=== PATIENT | female | born 1950 | race Caucasian/White ===

== ENCOUNTER → 2023-08-25 | Outpatient (CLI) | payer MEDICARE ==
--- NOTE | 2023-08-25 16:06 | BD ---
EXAMINATION TYPE: Axial Bone Density DATE OF EXAM: 08/25/2023 CLINICAL HISTORY: 72 years old Female. ICD-10 CODE: M85.88 OTH DISORDER OF BONE DENSI Height: 60 Weight: 106 FRAX RISK QUESTIONS: Family History (Parent hip fracture): no History of Fracture in Adulthood: yes Secondary Osteoporosis: no Rheumatoid Arthritis: no RISK FACTORS HISTORY OF: Surgery to Hip(right) When: 2023 MEDICATIONS: Thyroid Medications: no Osteoporosis Medications: no EXAM MEASUREMENTS: Bone mineral densitometry was performed using the [employer] System. Bone mineral density as measured about the Lumbar spine is: ----- L1-L4(G/cm2): 1.077 T Score Values are as follows: ----- L1: -1.3 ----- L2: 0.4 ----- L3: -0.7 ----- L4: -1.8 ----- L1-L4: -0.9 Z Score Values are as follows: ----- L1: 1.0 ----- L2: 2.7 ----- L3: 1.6 ----- L4: 0.4 ----- L1-L4: 1.4 Bone mineral density baseline Bone mineral density about the L hip (g/cm2): 0.719 T Score values are as follows: -----L Neck: -2.7 -----L Total: -2.3 Z Score values are as follows: -----L Neck: -0.6 -----L Total: -0.3 Bone mineral density baseline FRAX%s: The graph provided illustrates a 23.2% chance for a major osteoporotic fx and a 7.3% chance f or the hips probability for fx in 10 years time. IMPRESSION: Osteoporosis (T Score less than -2.5). There is increased fracture risk and therapy is usually indicated based on age. Re-Screen 1-2 years. NOTE: T-SCORE=SD OF THE YOUNG ADULT MEAN.
== END | disposition home or self-care (01) ==
LOC: RADBDWWP 07:15
PROVIDERS: ATTEND Family Medicine
DX: Z12.31 Encounter for screening mammogram for malignant neoplasm of breast (principal); M85.88 Other specified disorders of bone density and structure, other site
CPT/HCPCS: 77080

== ENCOUNTER → 2023-10-27 | Outpatient (CLI) | payer MEDICARE ==
[2023-10-27 20:07] LABS: Blood Urea Nitrogen 24.4 mg/dL (9.0-27.0); Carbon Dioxide 19.7 mmol/L (21.6-31.8); Chloride 101 mmol/L (96-109); Potassium 4.8 mmol/L (3.5-5.5); Sodium 134 mmol/L (135-145)
[2023-10-27 23:21] LABS: NT-Pro-B-Type Natriuretic Pept 2383 pg/mL (0-125)
== END | disposition home or self-care (01) ==
LOC: LABWHC1 10:55
PROVIDERS: ATTEND Internal Medicine Interventional Cardiology
DX: I25.5 Ischemic cardiomyopathy (principal)
CPT/HCPCS: 36415; 80051; 82565; 83880; 84520

== ENCOUNTER → 2023-12-08 | Outpatient (CLI) | payer MEDICARE ==
[2023-12-08 15:35] LABS: BUN/Creat Ratio 32.92 Ratio (12.00-20.00); Blood Urea Nitrogen 39.5 mg/dL (9.0-27.0); Calcium 9.4 mg/dL (8.7-10.3); Carbon Dioxide 25.4 mmol/L (21.6-31.8); Chloride 102 mmol/L (96-109); Glucose 104 mg/dL (70-110); Potassium 4.9 mmol/L (3.5-5.5); Sodium 139 mmol/L (135-145)
[2023-12-08 15:52] LABS: Basophils # (A) 0.04 X 10*3/uL (0.00-0.10); Basophils % (A) 0.5 %; Eosinophils # (A) 0.12 X 10*3/uL (0.04-0.35); Eosinophils % (A) 1.6 %; HGB 13.9 g/dL (12.0-15.0); Lymphocytes # (A) 1.33 X 10*3/uL (0.90-5.00); Lymphocytes % (A) 18.1 %; MCH 30.2 pg (27.0-32.0); MCHC 32.3 g/dL (32.0-37.0); MCV 93.5 FL (80.0-97.0); Mean Platelet Volume 10.3 FL (9.5-12.2); Monocytes # (A) 0.63 X 10*3/uL (0.20-1.00); Monocytes % (A) 8.6 %; NRBC Per 100 WBC 0 X 10*3/uL (0.00-0.01); Neutrophils % (A) 70.7 %; Platelet Count 256 X 10*3/uL (140-440); RDW 14.9 % (11.5-14.5); WBC 7.36 X 10*3/uL (4.50-10.00)
[2023-12-08 17:03] LABS: INR 1.01 sec (0.93-1.11); Prothrombin Time 10.9 sec (9.9-11.9)
== END | disposition home or self-care (01) ==
LOC: LABPAT 07:51
PROVIDERS: ATTEND Orthopaedic Surgery
CPT/HCPCS: 36415; 80048; 85025; 85610; 87070

== ENCOUNTER → 2023-12-21 | Outpatient (CLI) | payer MEDICARE ==
--- NOTE | 2023-12-21 11:43 | US ---
EXAMINATION TYPE: US kidneys/renal and bladder DATE OF EXAM: 12/21/2023 COMPARISON: NONE CLINICAL INDICATION: Female, 73 years old with history of E87.0 HYPEROSMOLALITY AND HYPERNATREMIA; Ab normal labs TECHNIQUE: Grayscale imaging of the bilateral kidneys and urinary bladder: FINDINGS: EXAM MEASUREMENTS: Right Kidney: 9.7 x 3.8 x 5.0 cm Left Kidney: 9.6 x 4.4 x 4.0 cm Right Kidney: No evidence of hydro, small cystic lesion lower pole= 0.6 x 0.6 x 0.7 cm Left Kidney: Simple Cyst medial= 2.9 x 2.2 x 2.8 cm, mildly dilated pelvis= 0.9 cm Bladder: wnl Bilateral Jets seen: No Incidental finding gallstones IMPRESSION: 1. Small bilateral cortical renal cysts. 2. Cholelithiasis. [facility], , 12/21/2023 11:40 AM
== END | disposition home or self-care (01) ==
LOC: RADUSWWP 07:22
PROVIDERS: ATTEND Family Medicine
DX: N28.1 Cyst of kidney, acquired (principal); K80.20 Calculus of gallbladder without cholecystitis without obstruction; E87.0 Hyperosmolality and hypernatremia
CPT/HCPCS: 76770

== ENCOUNTER 2024-01-04 08:08 | Day surgery (SDC) | payer MEDICARE ==
[2023-12-30 15:10] VITALS: BMI 21.3
--- NOTE | 2024-01-03 20:47 | HP ---
HISTORY AND PHYSICAL DATE OF SURGERY: 01/04/2024. HISTORY OF PRESENT ILLNESS: Khushboo Jay is a 73-year-old patient seen with symptomatic left knee osteoarthritis. After having treatment options discussed, she elected to proceed with left total knee arthroplasty. Consent regarding the procedure was obtained. Medical clearance was provided by Dr. Delarosa's office. Cardiac clearance provided by Dr. Tracy's office. PAST MEDICAL HISTORY: Hypertension, hyperlipidemia, coronary artery disease. PAST SURGICAL HISTORY: Cardiac catheterization with stent, right total hip arthroplasty. DAILY MEDICATIONS: 1. Brilinta. 2. Atorvastatin. 3. Enalapril. 4. Metoprolol. 5. Potassium. ALLERGIES: None. SOCIAL HISTORY: She denies tobacco use. PHYSICAL EVALUATION OF THE LEFT KNEE: Range of motion is -2 to 120 degrees. Crepitus, medial patellofemoral compartments with range of motion. Pain with patellofemoral compression. Ligaments stable. Hip rotation without pain. Distal neurovascular exam is intact. IMAGING STUDIES: Left knee radiographs reveal severe osteoarthritic changes. IMPRESSION: 1. Left knee osteoarthritis. 2. Hypertension. 3. Hyperlipidemia. 4. Cardiovascular disease. PLAN: Left total knee arthroplasty. MMODL / IJN: [id number] /
[~2024-01-04 08:08] MED LIST: LIDOCAINE 1% (10MG/ML) FOR IV START INTRADERMA PRN; TRANEXAMIC 1,000 MG/100ML-NACL 1,000 MG in SALINE 1 100ML.BAG IVPB PRN; fentaNYL (PF) 50 MCG/ML 2 ML AMP IV PRN
[2024-01-04] MEDS: IV FLUID CONTINUATION 1,000 ML IV ONE (09:01)
[2024-01-04] MEDS: LACTATED RINGERS 1,000 ML IV SCH ×2 (09:11→14:51)
[2024-01-04] MEDS: MIDAZOLAM 2 MG/2 ML VIAL IV ONE (09:18)
[2024-01-04] MEDS: MELOXICAM 7.5 MG TAB PO PRN (09:34)
[2024-01-04] MEDS: ONDANSETRON 4 MG/2 ML VIAL IVP ONE (09:35)
[2024-01-04] MEDS: ACETAMINOPHEN TAB 500 MG TAB PO PRN (09:35)
[2024-01-04] MEDS: DEXAMETHASONE SOD PHOSPHATE 4 MG/ML 1 ML VIAL IV ONE (09:35)
[2024-01-04] MEDS: ceFAZolin 1,000 MG in SODIUM CHLORIDE 0.9% 1,000 ML IRRIGATION ONE (10:20)
[2024-01-04] MEDS ORDERED: ONDANSETRON 4 MG/2 ML VIAL IVP PRN (11:29)
[2024-01-04] MEDS ORDERED: HYDROmorphone 0.5 MG/0.5 ML SYRINGE IVP PRN ×2 (11:29)
[2024-01-04] MEDS ORDERED: HYDROcodone/APAP 5-325MG 1 EACH TAB PO PRN (11:29)
[2024-01-04] MEDS ORDERED: NALOXONE 0.4 MG/ML 1 ML VIAL IV PRN (11:29)
--- NOTE | 2024-01-04 11:29 | P.OP ---
Date of Procedure: 01/04/24 Preoperative Diagnosis: Left knee osteoarthritis Postoperative Diagnosis: Left knee osteoarthritis Procedure(s) Performed: Left total knee arthroplasty Implants: 1. DePuy attune size 4 narrow left cruciate retaining cemented femur 2. DePuy attune size 3 fixed-bearing cemented tibial baseplate 3. DePuy attune size 4 fixed-bearing cruciate retaining 7 mm polyethylene tibial insert 4. DePuy attune 32 mm all polyethylene cemented patella Anesthesia: regional (Adductor canal catheter, iPAQ block), spinal Surgeon: Hebert Barger Instructor Pilot #1: Deniz Felix Estimated Blood Loss (ml): 45 Pathology: none sent Condition: stable Disposition: PACU Indications for Procedure: 73-year-old patient seen with symptomatic left knee osteoarthritis. After having treatment options discussed, she elected to proceed with left total knee arthroplasty. Operative Findings: See description of procedure Description of Procedure: Patient was taken to the operative suite after having an adductor canal catheter placed by the department of anesthesia. Patient underwent a spinal anesthetic by the department of anesthesia. Patient was given preoperative IV intake antibiotics and TXA. A well-padded tourniquet was placed about the left lower extremity. The lower extremity was then prepped and draped in the normal sterile orthopedic fashion. The extremity was elevated, a tourniquet was insufflated to 300. A standard anterior incision was made sharply through skin. Dissection was taken down through the subcutaneous soft tissues down to the extensor mechanism. A medial arthrotomy was performed, patella was everted and knee was flexed. There was advanced osteoarthritis noted. I introduced my distal intramedullary femoral drill. I then introduced the distal femoral cutting jig. Parveen GONZALES secured the cutting jig with 2 pins. I held retractors in position while Parveen GONZALES performed the distal femoral resection through the guide area we now removed her distal femoral cutting guide. We now placed our 4-in-1 femoral cutting block and positioned and it was secured with 2 pins by Parveen GONZALES while I held the block in position. The distal femoral finishing was now completed. A proximal tibial cutting guide was positioned. I held the guide in the appropriate position with both hands well Parveen GONZALES inserted stabilizing pins into the guide. Proximal tibial cut was made. We now placed a trial femoral component into position, along with an appropriate size tibial tray and insert. We now took the knee through range of motion and had full extension good flexion and good overall soft tissue balance noted. The patella was everted and stabilized with 2 towel clips held by Parveen GONZALES while I performed a flush with patellar quad tendon utilizing a fresh sawblade. We templated the patella, appropriate drill holes were made. An appropriate trial patella was positioned, knee was taken through full range of motion with the patella tracking very nicely. The trial patella was removed. Drill holes were made through the femoral component. All trial components were removed after marking off the appropriate rotation of the tibia. Retractors were now positioned along the proximal tibia. An appropriate keel punch was made with the appropriate size tibial guide by myself on Parveen GONZALES assisted by holding retractors. At this point appropriate size implants were chosen and opened. The joint was irrigated copiously with pulse lavage mechanical irrigation. The wound was irrigated with pulse lavage mechanical irrigation. We mixed antibiotic methylmethacrylate. We placed the knee into flexion. We placed multiple retractors assisted by Parveen GONZALES to expose the proximal tibia. Once the methyl methacrylate was ready, the tibial component was cemented into place removing any excess methylmethacrylate form by both myself and Parveen GONZALES. The femoral component was cemented into place removing the removing any excess methylmethacrylate performed by both myself and Parveen GONZALES. We then inserted the appropriate size polyethylene tibial insert. We made sure that it was locked into position. We took the knee into full extension, and then back in a flexion making sure we had removed any excess methylmethacrylate. The patellar component was then cemented down and secured with clamp. Excess methylmethacrylate removed. We kept the knee in full extension, patellar clamp in position until methylmethacrylate had hardened. Once it had hardened the patellar clamp was removed. The knee was taken through full range of motion. The patella tracked nicely. There was good soft tissue balancing. The tourniquet was now released. Additional hemostasis was achieved via electrocautery. A second gram of TXA was given. The wound again was irrigated with pulse lavage mechanical irrigation. The superficial soft tissues were infiltrated local analgesic. The extensor mechanism was repaired with Ethibond suture. We checked the repair with range of motion and it was stable. The subcutaneous soft tissues were repaired with Vicryl in layers. The skin was approximated with pernio/Dermabond. Sterile dressings were applied followed by loose web roll and Matias bandage. The patient was transferred to a bed, and taken to recovery in stable and satisfactory condition. Parveen GONZALES assisted with this complex procedure.
[2024-01-04] MEDS: ROPIVACAINE 1,100 MG, SODIUM CHLORIDE 0.9% 500 ML 330 ML, EMPTY PAIN BALL 1 EACH MISCELLANE PRN (12:09)
--- NOTE | 2024-01-04 12:19 | XR ---
EXAMINATION TYPE: XR knee limited LT DATE OF EXAM: 01/04/2024 COMPARISON: NONE CLINICAL INDICATION: Female, 73 years old with history of Evaluation for Postop abnormality and align ment; TECHNIQUE: Two views submitted FINDINGS: There is a prosthetic knee in near anatomic alignment. There is soft tissue edema and soft tissue e mphysema/air consistent with recent surgery. IMPRESSION: 1. Postoperative change. [facility], , 01/04/2024 12:17 PM
--- NOTE | 2024-01-04 14:13 | P.ANPRN ---
Procedure Note - Anesthesia - Nerve Block Performed Left Adductor Canal Infusion Time Out Performed: Yes Date of Procedure: 01/04/24 Procedure Start Time: : Procedure Stop Time: Location of Patient: PreOp Indication: Acute Post-Operative Pain, Requested by Surgeon Sedation Type: Sedate with meaningful contact maintained Preparation: Sterile Prep, Sterile Dressing Position: Supine Catheter: Indwelling Needle Types: Pajunk Needle Gauge: 21 Ultrasound used to visualize needle placement: Yes Ultrasound used to observe medication spread: Yes Blood Aspirated: No Pain Paresthesia on Injection Noted: No Resistance on Injection: Normal Image Stored and Saved: Yes Events: Uneventful and Well Tolerated (Ropivacaine 0.5% 20 cc plus dexamethasone 4 mg)
--- NOTE | 2024-01-04 14:14 | P.ANPRN ---
Procedure Note - Anesthesia - Nerve Block Performed Left iPack Single Time Out Performed: Yes Date of Procedure: 01/04/24 Procedure Start Time: Procedure Stop Time: Location of Patient: PreOp Indication: Acute Post-Operative Pain, Requested by Surgeon Sedation Type: Sedate with meaningful contact maintained Preparation: Sterile Prep (Start) Position: Supine Needle Types: Pajunk Needle Gauge: 21 Ultrasound used to visualize needle placement: Yes Ultrasound used to observe medication spread: Yes Blood Aspirated: No Pain Paresthesia on Injection Noted: No Resistance on Injection: Normal Image Stored and Saved: Yes Events: Uneventful and Well Tolerated (Ropivacaine 0.5% 20 cc plus dexamethasone 4 mg)
[2024-01-04] MEDS: droPERidol 5 MG/2 ML VIAL IVP ONE (15:35)
[2024-01-04] MEDS ORDERED: TORSEMIDE 20 MG TAB PO PRN (15:35)
[2024-01-04] MEDS: HYDROmorphone 0.5 MG/0.5 ML SYRINGE IVP PRN (15:55)
--- NOTE | 2024-01-04 16:30 | P.CONS ---
History of Present Illness - Reason for Consult Consult date: 01/04/24 Medical Management Requesting physician: Hebert Barger - History of Present Illness History of Presenting Illness: Patient is a pleasant 73-year-old female with a past medical history of CAD status post stenting x 6, hypertension, hyperlipidemia, macular degeneration, and osteoarthritis. She is currently admitted under orthopedic surgery team and is status post elective left total knee arthroplasty. We were consulted for medical management throughout hospitalization. Patient seen and fully evaluated in room 468. She reports currently experiencing 8 out of 10 postsurgical pain at this time. She denies having any postoperative nausea or vomiting or experiencing any chest pain, palpitations, shortness of breath, or any other complaints at this time. Patient reports she has not yet urinated since completion of surgical procedure. Review of systems: Pertinent positives and negatives as discussed in HPI, a complete review of systems was performed and all other systems are negative. Physical exam: Vital signs reviewed and stable. General: Nontoxic, no distress and appears stated age. Derm: Skin warm and dry, normal coloration for ethnicity. Head: Atraumatic, normocephalic and symmetric. Eyes: EOM's intact, no lid lag, and anicteric sclera Mouth: no lip lesions, mucus membranes moist Cardiovascular: regular rate and rhythm with normal S1S2, systolic murmur, positive posterior tibial pulses bilaterally, and cap refill < 2 seconds. Lungs: Respirations even, regular, and unlabored on room air. Lungs CTA bilaterally, no rhonchi, no rales, no wheezing, and no accessory muscle usage. Abdominal: soft, nontender to palpation, no guarding, no appreciable organomegaly Ext: No gross muscle atrophy, no edema, no contractures. Movement and sensation intact. Postoperative dressing/Matias wrap/ice pack in place to left knee. Neuro: Speech clear, face symmetrical and CN II-XII grossly intact with no noted focal neuro deficits Psych: Alert and oriented to person, place, time, and situation. Appropriate and pleasant affect. Assessment and Plan of Care: Status post left total knee arthroplasty -Management per primary admitting orthopedic surgery team including DVT prophylaxis, pain management, wound/dressing management, weightbearing, and PT/OT. -DVT prophylaxis currently with aspirin 81 mg twice daily CAD status post stenting x 6 -Resume home cardiac medication regimen with aspirin 81 mg daily, atorvastatin 80 mg nightly, lisinopril 5 mg daily, metoprolol 25 mg nightly, Brilinta 90 mg twice daily, and torsemide 10 mg daily. Hypertension -Monitor vital signs and continue daily medication regimen with lisinopril 5 mg nightly, metoprolol 25 mg nightly, and torsemide 10 mg daily. Hyperlipidemia -Continue daily medication regimen with atorvastatin 80 mg daily. Iron deficiency anemia -Resume ferrous sulfate 325 mg daily. Data reviewed: -Preoperative labs reviewed. CBC unremarkable with WBC count of 7.36, hemoglobin 13.9, and platelet count of 256. BMP showing sodium 139, potassium 4.9, chloride 102, bicarb 25.4, anion gap 11.60, BUN 39.5, creatinine 1.2, GFR greater than 60. -Vital signs reviewed and stable. Blood pressure 135/74, heart rate 72, respiratory rate 17, temp 97.5 F, and SpO2 of 93% on room air. With the patient's extensive cardiac history and current need for IV pain management and undergoing anesthesia for surgery, recommend telemetry monitoring for the next 24 hours. Thank you for allowing us to participate in the care of this pleasant patient. Do not hesitate to contact us with questions. Someone can be reached from the [facility] all hours of the day at [phone] or via [employer]. Patient was seen independently by Nurse Practitioner. This document was prepared using [employer] dictation software. Please allow for errors in supervisor claims while rare they do occur. Martell Hernandez NP rendered care for this patient independently, reviewed the findings and plan as documented in the note above and agree with plan. I did not physically speak with or examine the patient on this date. Past Medical History Past Medical History: Eye Disorder, Hyperlipidemia, Hypertension, Osteoarthritis (OA), Syncope Additional Past Medical History / Comment(s): Macular Degeneration and Glaucoma. Syncope which led to 5 stents in 2017. Thin skin left groin,"had heart cath April 2023, puncture site(left groin) has opened up and healed over again X2 since then, last one month ago, PCP aware, says it's fine". History of Any Multi-Drug Resistant Organisms: None Reported Past Surgical History: Heart Catheterization With Stent, Joint Replacement Additional Past Surgical History / Comment(s): Total of 6 stents(5 in 2017, 1 new and one old one replaced 04/2023), right total hip replacement. Past Anesthesia/Blood Transfusion Reactions: Postoperative Nausea & Vomiting (PONV) Additional Past Anesthesia/Blood Transfusion Reaction / Comm: Groggy after hip replacement. Date of Last Stent Placement:: 04/2023 Past Psychological History: No Psychological Hx Reported Additional Psychological History / Comment(s): Mental breakdown over 30 yrs ago, no problems since then. Smoking Status: Former smoker Past Alcohol Use History: None Reported Additional Past Alcohol Use History / Comment(s): Quit smoking in 2015. Past Drug Use History: None Reported - Past Family History Mother Family Medical History: No Reported History Medications and Allergies Home Medications Medication Instructions Recorded Confirmed Type Alendronate Sodium 70 mg PO FR 12/30/23 01/04/24 History Aspirin [Adult Low Dose Aspirin EC] 81 mg PO QAM 12/30/23 01/04/24 History Atorvastatin [Lipitor] 80 mg PO QAM 12/30/23 01/04/24 History Calcium (Unknown Dose) 1 tab PO HS 12/30/23 12/30/23 History Ferrous Sulfate [Feosol] 325 mg PO QAM 12/30/23 12/30/23 History Latanoprost [Xelpros] 1 drop BOTH EYES HS 12/30/23 01/04/24 History Metoprolol Succinate (ER) [Toprol 25 mg PO HS 12/30/23 01/04/24 History Xl] Numaqual Vitamin 3 tab PO QAM 12/30/23 12/30/23 History OLANZapine 10 mg PO HS 12/30/23 01/04/24 History Potassium Chloride [K-Tab ER] 10 meq PO QAM 12/30/23 01/04/24 History Ticagrelor [Brilinta] 90 mg PO BID 12/30/23 12/30/23 History Torsemide [Demadex] 10 mg PO DAILY PRN 12/30/23 01/04/24 History lisinopriL [Zestril] 5 mg PO HS 12/30/23 01/04/24 History Allergies Allergy/AdvReac Type Severity Reaction Status Date / Time codeine Allergy Unknown Verified 01/04/24 08:41 Physical Exam Vitals: Vital Signs Temp Pulse Resp BP BP Pulse Ox 01/04/24 14:58 97.5 F L 72 17 135/74 93 L 01/04/24 13:50 66 16 121/56 93 L 01/04/24 13:35 68 16 122/63 95 01/04/24 13:20 62 16 116/62 94 L 01/04/24 13:05 68 16 120/67 95 01/04/24 12:50 74 16 136/67 95 01/04/24 12:35 58 L 16 124/68 95 01/04/24 12:20 57 L 16 123/62 98 01/04/24 12:05 60 16 122/85 92 L 01/04/24 11:50 97.7 F 65 14 94 L 01/04/24 09:25 63 16 145/84 98 01/04/24 09:01 98.5 F 67 18 173/79 97 Intake and Output 01/04/24 01/04/24 01/04/24 06:59 14:59 22:59 Intake Total 901 Output Total 45 Balance 856 Intake: IV 901 Output: Estimated Blood Loss 45 Other: Weight 53.5 kg
[2024-01-04] MEDS: HYDROcodone/APAP 7.5-325MG 1 EACH TAB PO PRN (20:22)
[2024-01-04] MEDS: ASPIRIN 81 MG PO SCH (20:22)
[2024-01-04] MEDS: CALCIUM CARBONATE 500 MG CHEWABLE PO SCH (20:22)
[2024-01-04] MEDS: SENNOSIDES-DOCUSATE SODIUM 1 EACH TAB PO SCH (20:23)
[2024-01-04] MEDS: LATANOPROST 0.005% OPHTH DROPS 2.5 ML BTL BOTH EYES SCH (21:41)
[2024-01-04] MEDS: METOPROLOL SUCCINATE (ER) 25 MG TAB.ER.24H PO SCH (21:41)
[2024-01-04] MEDS: TICAGRELOR 90 MG TAB PO SCH (21:42)
[2024-01-04] MEDS: OLANZapine 10 MG TAB PO SCH (21:42)
[2024-01-04] MEDS: lisinopriL 5 MG TAB PO SCH (21:42)
--- NOTE | 2024-01-05 07:21 | P.PN ---
Progress Note - Text Progress Note Date: 01/05/24 (255) Anesthesiology Postop day 1 status post total knee arthroplasty with adductor canal catheter. Patient doing well. VAS 0 out of 10. Increases to 10 out of 10 with knee flexion. Gross strength intact in lower extremity. Afebrile. Denies alterations in sensorium. Catheter site intact. Heart regular rate Lungs nonlabored Abdomen nondistended Assessment: Postop day 1 status post total knee arthroplasty with adductor canal catheter Plan: 1.All questions answered. Maintain catheter 2 more days with patient removal at home. Instructions to be given at discharge. 2.This note was dictated using [employer] software. Please be advised there is a potential for misspellings or errors in maintenance millwright.
[2024-01-05 07:50] VITALS: BP 120/66; PULSE 94; RESP 17; TEMP 98.2
[2024-01-05] MEDS: FERROUS SULFATE 325 MG TAB PO SCH (08:13)
[2024-01-05] MEDS: ATORVASTATIN 80 MG TAB PO SCH (08:13)
[2024-01-05 08:27] LABS: Basophils # (A) 0.01 X 10*3/uL (0.00-0.10); Basophils % (A) 0.1 %; Eosinophils # (A) 0 X 10*3/uL (0.04-0.35); Eosinophils % (A) 0 %; HCT 30.9 % (37.2-46.3); HGB 10.4 g/dL (12.0-15.0); Lymphocytes % (A) 5.9 %; MCH 31.5 pg (27.0-32.0); MCHC 33.7 g/dL (32.0-37.0); MCV 93.6 FL (80.0-97.0); Mean Platelet Volume 10.8 FL (9.5-12.2); Monocytes # (A) 0.84 X 10*3/uL (0.20-1.00); NRBC Per 100 WBC 0 X 10*3/uL (0.00-0.01); Neutrophils # (A) 14.88 X 10*3/uL (1.80-7.70); Neutrophils % (A) 88.3 %; Platelet Count 264 X 10*3/uL (140-440); RDW 15.2 % (11.5-14.5); WBC 16.84 X 10*3/uL (4.50-10.00)
[2024-01-05 08:41] LABS: Blood Urea Nitrogen 23.4 mg/dL (9.0-27.0); Calcium 8.1 mg/dL (8.7-10.3); Carbon Dioxide 20.1 mmol/L (21.6-31.8); Chloride 103 mmol/L (96-109); Glucose 153 mg/dL (70-110); Magnesium 1.9 mg/dL (1.5-2.4); Potassium 4.5 mmol/L (3.5-5.5); Sodium 134 mmol/L (135-145)
--- NOTE | 2024-01-05 09:46 | P.PN ---
Subjective Progress Note Date: 01/05/24 Principal diagnosis: Status post left total knee arthroplasty Patient evaluated at bedside, she is resting comfortably in her hospital chair. She did very well with physical therapy. She is urinating with no issues. Her pain is well-controlled. Denies headaches, lightheadedness, chest pain or shortness of breath Objective - Vital Signs Vital signs: Vital Signs Temp 98.2 F 01/05/24 06:56 Pulse 94 01/05/24 06:56 Resp 17 01/05/24 06:56 BP 120/66 01/05/24 06:56 Pulse Ox 94 L 01/05/24 06:56 FiO2 Intake & Output 01/04/24 01/05/24 01/05/24 18:59 06:59 18:59 Intake Total 901 Output Total 45 450 Balance 856 -450 Weight 53.5 kg Intake: IV 901 Output: Urine 450 Estimated Blood Loss 45 Other: Voiding Method Toilet # Voids 0 2 - Exam Left lower extremity: Incision is clean, dry, and intact. The foam dressing is in good condition. There is minimal soft tissue swelling and ecchymosis surrounding the medial and lateral aspects of the incision. Calf is soft, no tenderness with palpation. Plantar flexion, dorsiflexion, EHL, FHL are intact. Sensory exam to light touch throughout the extremity is intact, dorsal pedis pulses 2+. - Labs CBC & Chem 7: 01/05/24 03:28 01/05/24 03:28 Labs: Abnormal Lab Results - Last 24 Hours (Table) 01/05/24 01/05/24 Range/Units 03:28 03:28 WBC 16.84 H (4.50-10.00) X 10*3/uL RBC 3.30 L (4.10-5.20) X 10*6/uL Hgb 10.4 L (12.0-15.0) g/dL Hct 30.9 L (37.2-46.3) % RDW 15.2 H (11.5-14.5) % Immature Gran # 0.11 H (0.00-0.04) X 10*3/uL Neutrophils # 14.88 H (1.80-7.70) X 10*3/uL Eosinophils # 0 L (0.04-0.35) X 10*3/uL Sodium 134 L (135-145) mmol/L Carbon Dioxide 20.1 L (21.6-31.8) mmol/L BUN/Creatinine Ratio 23.40 H (12.00-20.00) Ratio Glucose 153 H (70-110) mg/dL Calcium 8.1 L (8.7-10.3) mg/dL Assessment and Plan Assessment: Postoperative day #1 status post left total knee arthroplasty Plan: Pain control, plan for discharge home on [place] 7.5 mg / 325 mg DVT prophylaxis, aspirin 81 mg twice a day for 30 days Wound care instructions discussed, this to include icing and elevating and showering Home PT/OT after discharge Recommendations appreciated Discharge planning: Patient stable for discharge home today Time with Patient: Less than 30
--- NOTE | 2024-01-05 09:49 | P.DS ---
Providers Date of admission: 01/04/2024 Expected date of discharge: 01/05/24 Attending physician: Hebert Campa Consults: 01/04/24 11:29 Consult Physician Routine Consulting Provider: Deepak Norton Consult Reason/Comments: Medical management Do you want consulting provider notified?: Yes Primary care physician: [facility] Course: Date of admission: 01/04/2024 Date of discharge: 01/05/2024 Admission diagnosis: Status post left total knee arthroplasty Discharge diagnosis: Same Attending physician: Dr. campa Surgical procedures: Left total knee arthroplasty Brief history: Patient is a 73-year-old female with a history of progressive primary left knee osteoarthritis. At this point patient has failed conservative treatment measures and has opted to proceed with a elective left total knee arthroplasty. Hospital course: Details of patient's surgery can be found in operative report. Patient tolerated the procedure well and was subsequently transported to orthopedic floor. Patient's orthopeidc and medical care was provided daily. Patient had daily laboratory tests performed for evaluation of overall blood counts. Patient had daily physical therapy to include strengthening range of motion as well as education with walker ambulation. Patient was treated with aspirin for their postoperative DVT prophylaxis during their inpatient stay. Patient was noted to have a relatively uneventful postoperative course. Patient reported satisfactory pain control with oral pain medications by postoperative day 0. Patient showed satisfactory progress with physical therapy. Patient moved steadily through the program and had no difficulty meeting the goals by postoperative day 1. Given patient's otherwise satisfactory course and having met physical therapy goals, plan is to discharge patient home on postoperative day 1. Discharge condition/disposition: Patient will be discharged home in stable condition. Discharge medications: Instructions are given on resumption of patient's normal daily medications per primary care recommendation, in addition patient will be prescribed Roscoe 7.5 mg / 325 mg, senna S. Discharge instructions: 1. Wound care and infection precautions, keep incision dry and covered while showering, no lotions, creams, moisturizers. No soaking, tubs, pools, hottubs. Do not scrub over the incision. 2. Weight-bear as tolerated with walker / cane until follow-up. 3. Ice and elevate when necessary. Do not exceed 20 minutes per hour with ice pack. 4. Utilize compression sleeve until seen at first follow up appointment. 5. Visiting nursing care. 6. Home physical therapy including home CPM. 7. Pain meds and anticoagulants per prescription. 8. Pain medication has potential to cause constipation. Increase oral fluid and fiber intake. Contact primary care provider if you have not had a bowel movement within 48 hours after discharge 9. No anti-inflammatory medication until discussed at first post operative visit, this including Motrin, Aleve, Mobic, Diclofenac. 10. Follow up in office at 2 weeks postop with Parveen Felix PA-C/Chaitanya Banerjee 11. Follow up with your primary care doctor 7-10 days after discharge. 12. Contact [facility] with any questions, . Procedures: Left total knee arthroplasty Patient Condition at Discharge: Good Plan - Discharge Summary Discharge Rx Participant: No New Discharge Prescriptions: New Aspirin [Adult Low Dose Aspirin EC] 81 mg PO BID #60 tab HYDROcodone/APAP 7.5-325MG [Roscoe 7.5] 1 each PO Q6HR PRN #28 tab PRN Reason: Pain Sennosides/Docusate Sodium [Senna-S 8.6-50 mg Tablet] 2 each PO DAILY PRN #30 tablet PRN Reason: Constipation No Action Numaqual Vitamin 3 tab PO QAM Latanoprost [Xelpros] 1 drop BOTH EYES HS Torsemide [Demadex] 10 mg PO DAILY PRN PRN Reason: Edema Metoprolol Succinate (ER) [Toprol Xl] 25 mg PO HS lisinopriL [Zestril] 5 mg PO HS Alendronate Sodium 70 mg PO FR Ferrous Sulfate [Feosol] 325 mg PO QAM Atorvastatin [Lipitor] 80 mg PO QAM Ticagrelor [Brilinta] 90 mg PO BID Potassium Chloride [K-Tab ER] 10 meq PO QAM OLANZapine 10 mg PO HS Calcium (Unknown Dose) 1 tab PO HS Aspirin [Adult Low Dose Aspirin EC] 81 mg PO QAM Discharge Medication List Alendronate Sodium 70 mg PO FR 12/30/23 [History] Aspirin [Adult Low Dose Aspirin EC] 81 mg PO QAM 12/30/23 [History] Atorvastatin [Lipitor] 80 mg PO QAM 12/30/23 [History] Calcium (Unknown Dose) 1 tab PO HS 12/30/23 [History] Ferrous Sulfate [Feosol] 325 mg PO QAM 12/30/23 [History] Latanoprost [Xelpros] 1 drop BOTH EYES HS 12/30/23 [History] Metoprolol Succinate (ER) [Toprol Xl] 25 mg PO HS 12/30/23 [History] Numaqual Vitamin 3 tab PO QAM 12/30/23 [History] OLANZapine 10 mg PO HS 12/30/23 [History] Potassium Chloride [K-Tab ER] 10 meq PO QAM 12/30/23 [History] Ticagrelor [Brilinta] 90 mg PO BID 12/30/23 [History] Torsemide [Demadex] 10 mg PO DAILY PRN 12/30/23 [History] lisinopriL [Zestril] 5 mg PO HS 12/30/23 [History] Aspirin [Adult Low Dose Aspirin EC] 81 mg PO BID #60 tab 01/05/24 [Rx] HYDROcodone/APAP 7.5-325MG [Roscoe 7.5] 1 each PO Q6HR PRN #28 tab 01/05/24 [Rx] Sennosides/Docusate Sodium [Senna-S 8.6-50 mg Tablet] 2 each PO DAILY PRN #30 tablet 01/05/24 [Rx] Follow up Appointment(s)/Referral(s): [facility],Equipment [NON-STAFF] - As Needed (Call [facility] once home to arrange delivery of the Continuous Passive Motion (CPM) machine) Deniz Felix PAC [PHYSICIAN DIRECTOR CAREER SERVICES] - 2 Weeks Activity/Diet/Wound Care/Special Instructions: Orthopedic Discharge Instructions: 1. Wound care and infection precautions, keep incision dry and covered while showering, no lotions, creams, moisturizers. No soaking, pools, hot tubs. Do not scrub over incision. 2. Weight-bear as tolerated with walker / cane until follow-up. 3. Ice and elevate when necessary. Do not exceed 20 minutes per hour with ice pack. 4. Utilize compression sleeve until seen at first follow up appointment. 5. Pain meds and anticoagulants per prescription. 6. Pain medication has potential to cause constipation. Increase oral fluid and fiber intake. Contact primary care provider if you have not had a bowel movement within 48 hours after discharge. 7. No anti-inflammatory medication until discussed at first post operative visit, this including Motrin, Aleve, Mobic, Diclofenac. 8. Follow up in office at 2 weeks postop with Parveen Felix PA-C/Chaitanya Aceves PA-C 9. Follow up with your primary care doctor 7-10 days after discharge. 10. Contact [facility] with any questions, . Wound care instructions: 1. Okay to remove surgical dressing as of 01/13/2024 2. Okay to shower directly over the incision after removal of dressing Discharge Disposition: HOME WITH HOME HEALTH SERVICES
--- NOTE | 2024-01-05 11:26 | P.PN ---
Subjective Progress Note Date: 01/05/24 Hospital Course:: Patient is a pleasant 73-year-old female with a past medical history of CAD status post stenting x 6, hypertension, hyperlipidemia, macular degeneration, and osteoarthritis. She is currently admitted under orthopedic surgery team and is status post elective left total knee arthroplasty. We were consulted for medical management throughout hospitalization. Physical exam: Patient seen and fully evaluated at bedside this morning. She was sitting up in reclining chair. She reports pain is currently controlled at this time. Patient reports she did well with physical therapy this morning and was able to even complete the stairs. Patient reports she is looking forward to discharge. She denies having any other questions, needs, concerns, or complaints at this time. Vital signs reviewed and stable. General: Nontoxic, no distress and appears stated age. Derm: Skin warm and dry, normal coloration for ethnicity. Head: Atraumatic, normocephalic and symmetric. Eyes: EOM's intact, no lid lag, and anicteric sclera Mouth: no lip lesions, mucus membranes moist Cardiovascular: regular rate and rhythm with normal S1S2, systolic murmur, positive posterior tibial pulses bilaterally, and cap refill < 2 seconds. Lungs: Respirations even, regular, and unlabored on room air. Lungs CTA bilaterally, no rhonchi, no rales, no wheezing, and no accessory muscle usage. Abdominal: soft, nontender to palpation, no guarding, no appreciable organomegaly Ext: No gross muscle atrophy, no edema, no contractures. Movement and sensation intact. Postoperative dressing/Matias wrap/ice pack in place to left knee. Neuro: Speech clear, face symmetrical and CN II-XII grossly intact with no noted focal neuro deficits Psych: Alert and oriented to person, place, time, and situation. Appropriate and pleasant affect. Assessment and Plan of Care: Status post left total knee arthroplasty -Management per primary admitting orthopedic surgery team including DVT prophylaxis, pain management, wound/dressing management, weightbearing, and PT/OT. -DVT prophylaxis currently with aspirin 81 mg twice daily Acute postoperative blood loss anemia, expected and stable finding. Preoperative hemoglobin 13.9 with postoperative hemoglobin of 10.4. This is a stable and expected finding. No need for transfusion or intervention at this time. Leukocytosis Reactive secondary to surgical procedure, no signs of infection. No need for further intervention. CAD status post stenting x 6 -Resume home cardiac medication regimen with aspirin 81 mg daily, atorvastatin 80 mg nightly, lisinopril 5 mg daily, metoprolol 25 mg nightly, Brilinta 90 mg twice daily, and torsemide 10 mg daily. Hypertension -Monitor vital signs and continue daily medication regimen with lisinopril 5 mg nightly, metoprolol 25 mg nightly, and torsemide 10 mg daily. Hyperlipidemia -Continue daily medication regimen with atorvastatin 80 mg daily. Iron deficiency anemia -Resume ferrous sulfate 325 mg daily. Data reviewed: -Postoperative labs reviewed. CBC showing leukocytosis with WBC count of 16.84 and acute postoperative blood loss anemia with hemoglobin of 10.4 with preoperative hemoglobin of 13.9. BMP showing mild hyponatremia with sodium of 134 otherwise normal findings. Blood glucose 153. Magnesium 1.9. -Vital signs reviewed and stable. Blood pressure 120/66, heart rate 94, res piratory rate 17, temp 98.2 F, and SpO2 of 94% on room air. Patient is medically optimized for discharge once cleared by primary admitting orthopedic surgery team. Thank you for allowing us to participate in the care of this pleasant patient. Do not hesitate to contact us with questions. Someone can be reached from the [facility] hospitalist group all hours of the day at [phone] or via [employer]. Patient was seen independently by Nurse Practitioner. This document was prepared using [employer] dictation software. Please allow for errors in puff iron operator while rare they do occur. Martell Hernandez NP rendered care for this patient independently, reviewed the findings and plan as documented in the note above and agree with plan. I did no t physically speak with or examine the patient on this date. Objective - Vital Signs Vital signs: Vital Signs Temp 98.2 F 01/05/24 06:56 Pulse 94 01/05/24 06:56 Resp 17 01/05/24 06:56 BP 120/66 01/05/24 06:56 Pulse Ox 94 L 01/05/24 06:56 FiO2 Intake & Output 01/04/24 01/05/24 01/05/24 18:59 06:59 18:59 Intake Total 901 Output Total 45 450 Balance 856 -450 Weight 53.5 kg Intake: IV 901 Output: Urine 450 Estimated Blood Loss 45 Other: Voiding Method Toilet # Voids 0 2 - Labs CBC & Chem 7: 01/05/24 03:28 01/05/24 03:28
[2024-01-05] MEDS: MULTIVITAMINS, THERA 1 EACH TAB PO SCH (13:10)
== END 2024-01-05 13:21 | disposition home health service (06) ==
LOC: OR 08:08 → 4SSUR 11:47 → OR 01-05 13:21
PROVIDERS: ATTEND Orthopaedic Surgery
DX: M17.12 Unilateral primary osteoarthritis, left knee (principal); D50.9 Iron deficiency anemia, unspecified; D72.829 Elevated white blood cell count, unspecified; E78.5 Hyperlipidemia, unspecified; G89.18 Other acute postprocedural pain; H40.9 Unspecified glaucoma; I10 Essential (primary) hypertension; I25.10 Atherosclerotic heart disease of native coronary artery without angina pectoris; Z79.02 Long term (current) use of antithrombotics/antiplatelets; Z79.82 Long term (current) use of aspirin; Z79.899 Other long term (current) drug therapy; Z87.891 Personal history of nicotine dependence; Z95.5 Presence of coronary angioplasty implant and graft
CPT/HCPCS: 73560; 27447; 64999; 64448; J2250; J1100; J0690 ×2; J2405; J2795; J1171; 80048; 83735; 85025

== ENCOUNTER → 2024-06-10 | Outpatient (CLI) | payer MEDICARE ==
--- NOTE | 2024-06-10 07:54 | XR ---
EXAMINATION TYPE: XR Hip Complete LT DATE OF EXAM: 06/10/2024 7:38 AM COMPARISON: None. CLINICAL INDICATION: Female, 73 years old with history of L97.125NON-PRS CHR ULC OF LEFT THIGH WITH M SL INVL, TECHNIQUE: AP and frogleg views of the left hip are obtained. FINDINGS: There is no acute fracture/dislocation evident in the left hip. The joint space in the le ft hip appears within normal limits. Open wound. No evidence for osteomyelitis. IMPRESSION: There is no acute fracture or dislocation in the left hip. [facility], , 06/10/2024 7:52 AM
[2024-06-10 10:14] LABS: Basophils # (A) 0.06 X 10*3/uL (0.00-0.10); Basophils % (A) 0.9 %; Eosinophils # (A) 0.15 X 10*3/uL (0.04-0.35); Eosinophils % (A) 2.2 %; HCT 35.4 % (37.2-46.3); HGB 11.5 g/dL (12.0-15.0); Lymphocytes # (A) 1.67 X 10*3/uL (0.90-5.00); Lymphocytes % (A) 24.8 %; MCHC 32.5 g/dL (32.0-37.0); MCV 95.4 FL (80.0-97.0); Mean Platelet Volume 10.4 FL (9.5-12.2); Monocytes # (A) 0.64 X 10*3/uL (0.20-1.00); Monocytes % (A) 9.5 %; NRBC Per 100 WBC 0 X 10*3/uL (0.00-0.01); Neutrophils % (A) 62.5 %; Platelet Count 238 X 10*3/uL (140-440); RBC 3.71 X 10*6/uL (4.10-5.20); RDW 14.6 % (11.5-14.5); WBC 6.73 X 10*3/uL (4.50-10.00)
[2024-06-10 10:34] LABS: ALT 34 U/L (8-44); AST 35 U/L (13-35); Albumin 4.1 g/dL (3.8-4.9); Albumin/Globulin Ratio 1.64 Ratio (1.60-3.17); Alkaline Phosphatase 82 U/L (41-126); Blood Urea Nitrogen 29.1 mg/dL (9.0-27.0); C Reactive Protein <0.30 mg/dL (0.00-0.80); Calcium 9.4 mg/dL (8.7-10.3); Chloride 104 mmol/L (96-109); Globulin 2.5 g/dL (1.6-3.3); Glucose 78 mg/dL (70-110); Potassium 4.6 mmol/L (3.5-5.5); Sodium 139 mmol/L (135-145); Total Bilirubin 0.3 mg/dL (0.3-1.2); Total Protein 6.6 g/dL (6.2-8.2)
[2024-06-10 12:05] LABS: Erythrocyte Sedimentation Rate 17 mm/Hr (0-30)
[2024-06-11 23:30] LABS: Prealbumin 23.2 mg/dL (18.0-42.0)
== END | disposition home or self-care (01) ==
LOC: LABWHC1 07:04
PROVIDERS: ATTEND Family Medicine
DX: L97.125 Non-pressure chronic ulcer of left thigh with muscle involvement without evidence of necrosis (principal)
CPT/HCPCS: 36415; 73502; 80053; 84134; 85025; 85652; 86140